=== PATIENT | female | born 1995 | race Caucasian/White ===

== ENCOUNTER 2017-10-21 14:41 | Emergency (ER) | payer OTHER ==
[2017-10-21 14:47] VITALS: BMI 19.3
--- NOTE | 2017-10-21 14:53 | PDOC ---
Rapid Medical Evaluation Chief Complaint: Sore Throat Time Seen by Provider: 10/21/17 14:47 Medical Evaluation: Allergies Allergy/AdvReac Type Severity Reaction Status Date / Time No Known Allergies Allergy Verified 10/21/17 14:45 Vital Signs Temp Pulse Resp BP Pulse Ox 98.7 F 60 18 132/71 100 10/21/17 14:45 10/21/17 14:45 10/21/17 14:45 10/21/17 14:45 10/21/17 14:45 10/21/17 14:47 I have performed a brief in-person evaluation of the patient. The patient presents with a chief complaints of mid chest pain with shortness of breath Reports pain is mid sternal that radiates in epigastric area with burning sensation. Pertinent physical exam findings: NAD even and unlabored breathing no pedal edema I have ordered the following: ekg, urine test ordered The patient will proceed to the ED for further evaluation.
[2017-10-21 15:27] LABS: BASO % 0.8 % (0-2.0); EOS % 1.3 % (0-4.5); HEMATOCRIT 38.6 % (32.4-45.2); LYMPH % 33.1 % (8-40); MCH 27.1 pg (25.7-33.7); MCHC 33.6 g/dl (32.0-36.0); MEAN CELL VOLUME 80.7 fl (80-96); MEAN PLT VOLUME 7.2 fl (7.5-11.1); MONO % 9.2 % (3.8-10.2); NEUT % 55.6 % (42.8-82.8); PLATELET COUNT 325 K/MM3 (134-434); RBC 4.79 M/mm3 (3.60-5.2); RDW 12.9 % (11.6-15.6); WHITE BLOOD COUNT 5.1 K/mm3 (4.0-10.0)
[2017-10-21 15:35] LABS: INR 1.15 (0.82-1.09)
[2017-10-21 15:44] LABS: ALBUMIN 3.9 g/dl (3.4-5.0); ANION GAP 5 (8-16); BILIRUBIN,TOTAL 0.5 mg/dL (0.2-1.0); BLOOD UREA NITROGEN 11 mg/dL (7-18); CALCIUM 8.7 mg/dL (8.5-10.1); CHLORIDE 107 mmol/L (98-107); CO2 28 mmol/L (21-32); CREATININE 0.8 mg/dL (0.55-1.02); GLUCOSE,RANDOM 84 mg/dL (74-106); POTASSIUM 3.8 mmol/L (3.5-5.1); SGOT/AST 37 U/L (15-37); SGPT/ALT 40 U/L (12-78); SODIUM 140 mmol/L (136-145); TOT PROT 7.7 g/dl (6.4-8.2)
[2017-10-21 15:47] LABS: ALK PHOS 61 U/L (45-117)
--- NOTE | 2017-10-21 15:48 | PDOC ---
History of Present Illness - General Chief Complaint: Chest Pain Stated Complaint: DIFFICULTY BREATHING Time Seen by Provider: 10/21/17 14:47 - History of Present Illness Initial Comments: 10/21/17 16:53 The patient is a 21 year old female with no significant PMH who presents for evaluation of chest pain. The patient reports burning midsternal chest pain with radiating into the back of her throat beginning 1 week ago with persistent symptoms prompting her presentation to the ED for evaluation. She denies any exacerbating or relieving factors and denies similar symptoms in the past. She reports some mild SOB, but otherwise denies fevers, chills, nausea, vomiting, abdominal pain, or changes with urination or bowel movements. She denies any OCP use, recent long travel, or leg swelling. Past History - Past Medical History Allergies/Adverse Reactions: Allergies Allergy/AdvReac Type Severity Reaction Status Date / Time No Known Allergies Allergy Verified 10/21/17 14:45 COPD: No - Immunization History Immunization Up to Date: Yes - Suicide/Smoking/Psychosocial Hx Smoking History: Never smoked Hx Alcohol Use: No Drug/Substance Use Hx: No Review of Systems - Review of Systems Comments:: 10/21/17 16:58 Constitutional: No fevers, chills, fatigue, malaise HEENT: No Rhinorrhea, nasal congestion, visual changes Cardiovascular: Chest pain. No syncope, palpitations, lightheadedness Respiratory: SOB. No Cough, Hemoptysis, Gastrointestinal: No Abdominal pain, Nausea, Vomiting, Constipation, Diarrhea, Melena Genitourinary: No Dysuria, Frequency, Urgency, Hesitancy, Hematuria, Flank pain Musculoskeletal: No Myalgia, arthralgia Skin: No rashes, itching, bruising, pallor Neurologic: No Headache, Dizziness, Numbness, Weakness, or Tingling Psychiatric: No Hallucinations. No SI or HI *Physical Exam - Vital Signs Last Vital Signs Temp Pulse Resp BP Pulse Ox 98.7 F 60 18 132/71 100 10/21/17 14:45 10/21/17 14:45 10/21/17 14:45 10/21/17 14:45 10/21/17 14:45 - Physical Exam Comments: 10/21/17 17:00 General Appearance: Nourished. No Apparent Distress HEENT: EOMI, NILESH. No Pharyngeal Erythema, Tonsillar Exudate, Tonsillar Erythema Neck: No Cervical Lymphadenopathy Respiratory/Chest: Lungs Clear, Normal Breath Sounds. No Crackles, Rales, Rhonchi, Wheezing Cardiovascular: Regular Rhythm, Regular Rate. No Murmur, Gallops, Rubs Gastrointestinal/Abdominal: Normal Bowel Sounds, Soft. No Guarding, Rebound, Tenderness Musculoskeletal: No CVA Tenderness Extremity: Normal Capillary Refill Integumentary: Normal Color, Dry, Warm Neurologic: Fully Oriented, Alert, Normal Mood/Affect, Normal Response, ED Treatment Course - LABORATORY CBC & Chemistry Diagram: 10/21/17 15:08 10/21/17 15:08 - ADDITIONAL ORDERS Additional order review: Laboratory Results 10/21/17 10/21/17 10/21/17 15:11 15:08 15:08 PT with INR 13.00 INR 1.15 H PTT (Actin FS) 31.0 Sodium 140 Potassium 3.8 Chloride 107 Carbon Dioxide 28 Anion Gap 5 L BUN 11 Creatinine 0.8 Creat Clearance w eGFR > 60 Random Glucose 84 Calcium 8.7 Total Bilirubin 0.5 AST 37 ALT 40 Alkaline Phosphatase 61 Troponin I < 0.02 Total Protein 7.7 Albumin 3.9 Urine HCG, Qual Negative 10/21/17 15:08 RBC 4.79 MCV 80.7 MCHC 33.6 RDW 12.9 MPV 7.2 L Neutrophils % 55.6 Lymphocytes % 33.1 Monocytes % 9.2 Eosinophils % 1.3 Basophils % 0.8 Medical Decision Making - Medical Decision Making 10/21/17 17:00 The patient is a 21 year old female with no significant PMH who presents for evaluation of chest pain. Differential includes but is not limited to: ACS, GERD, Pneumonia, infectious metabolic derangement. Given the patient's history , it is likely her symptoms are due to GERD. The patient does not have PE risk factors and we are less concerned for PE. Labs performed in triage including a cbc, cmp, troponin, urine preg were negative. We will obtain a chest plain film to evaluate further and treat the patient with iv fluids, pepcid, maalox, viscious lidocaine. We will continue to monitor and reassess in the meantime. 10/21/17 17:52 Chest plain film is unremarkable as preliminarily read by ER physician. The patient reports improvement in her symptoms. We are comfortable discharging the patient home at this time with primary care provider and GI follow up. We discussed the results, plan, and strict return precautions with the patient who voiced understanding and is agreeable with the plan. *DC/Admit/Observation/Transfer Diagnosis at time of Disposition: GERD (gastroesophageal reflux disease) Qualifiers: Esophagitis presence: esophagitis presence not specified Qualified Code(s): K21.9 - Gastro-esophageal reflux disease without esophagitis - Discharge Dispostion Disposition: HOME Condition at time of disposition: Good Admit: No - Referrals Referrals: Frank Juarez MD [Staff Physician] - - Patient Instructions Printed Discharge Instructions: DI for Gastroesophageal Reflux Disease (GERD) Additional Instructions: Please return to the ER if you experience concerning or worsening symptoms including worsening chest pain, difficulty breathing, vomiting, or fevers. Your lab results were normal here in the ER. Your symptoms are likely due to reflux. It is important that you call to schedule a follow up appointment with our GI specialist Dr. Juarez within 2-3 days to discuss your ER visit and further management of your symptoms. - Post Discharge Activity
[2017-10-21] MEDS ORDERED: FAMOTIDINE 20 MG/50 ML IVPB 20 MG/50 ML MG IVPB ONE ×2 (15:52→16:05)
[2017-10-21] MEDS ORDERED: SODIUM CHLORIDE 1,000 ML IV STA (15:52)
[2017-10-21] MEDS ORDERED: MAG HYDROX/AL HYDROX/SIMETH 30 ML UNIT-DOSE CUP PO ONE (15:53)
[2017-10-21] MEDS ORDERED: MAG HYDROX/AL HYDROX/SIMETH 30 ML UNIT-DOSE CUP ONE ×2 (16:05→16:50)
[2017-10-21] MEDS ORDERED: LIDOCAINE VISCOUS 2% ORAL/TOP 100 ML BOTTLE MM ONE (16:17)
[2017-10-21] MEDS ORDERED: LIDOCAINE VISCOUS 2% ORAL/TOP 20 ML UNIT-DOSE CUP ONE (16:50)
--- NOTE | 2017-10-21 16:52 | PDOC ---
Attending Attestation - Resident Resident Name: LidaJose - ED Attending Attestation I have performed the following: I have examined & evaluated the patient, The case was reviewed & discussed with the resident, I agree w/resident's findings & plan, Exceptions are as noted - HPI HPI: 10/21/17 16:49 21 yo F no pmhx here with c/o chest pain. burning in quality, started one week ago. no mod factors. starts in chest radiating to neck. no associated sob, not pleuritic. no leg swelling. no h/;'o dvt. no cough or congestion. no f/c n/v. - Physicial Exam PE: 10/21/17 16:51 awake alert lungs clear heart rrr no mrg. mild sterna ttp. abd soft nt nd. ext wwp no edema. no calf tenderness. skin warm and dry. nuero alert oriented . - Medical Decision Making 10/21/17 16:52 differential: gerd, msk pain, no risk factors for PE. , pna, plan cxr ekg labs. gi cocktail matt al home. ekg normal. abs negative. ucg negative. given antacid. pain improved.
[2017-10-21 18:23] VITALS: BP 126/71; PULSE 64; TEMP 98.2
--- NOTE | 2017-10-22 14:35 | EKG ---
Test Reason : Blood Pressure : / mmHG Vent. Rate : 065 BPM Atrial Rate : 065 BPM P-R Int : 166 ms QRS Dur : 088 ms QT Int : 410 ms P-R-T Axes : 047 055 036 degrees QTc Int : 426 ms NORMAL SINUS RHYTHM WITH SINUS ARRHYTHMIA POSSIBLE LEFT ATRIAL ENLARGEMENT BORDERLINE ECG NO PREVIOUS ECGS AVAILABLE Confirmed by MD Azael, Jose ([id number]) on 10/22/2017 2:35:22 PM Referred By: Confirmed By:Jose Addison MD
== END 2017-10-21 18:25 | disposition home or self-care (01) ==
LOC: JER 14:41
PROC: 3E033GC Introduction of Other Therapeutic Substance into Peripheral Vein, Percutaneous Approach (ICD-10-PCS; principal; 2017-10-21)
DX: K21.9 Gastro-esophageal reflux disease without esophagitis (principal)
CPT/HCPCS: 36415; 71046-TC-FY; 80053; 84484; 84703; 85025; 85610; 85730; 93005; 93010; 96365; 99283-25; J7030

== ENCOUNTER 2017-11-22 11:35 | Emergency (ER) | payer OTHER ==
[2017-11-22 12:13] VITALS: BP 125/46; PULSE 100; TEMP 98.2; BMI 20.9
[2017-11-22] MEDS ORDERED: guaiFENesin/D-METHORPHAN HB 10 ML UNIT-DOSE CUPS PO ONE (12:35)
[2017-11-22] MEDS ORDERED: PSEUDOEPHEDRINE HCL 30 MG TABLET PO ONE (12:35)
[2017-11-22] MEDS ORDERED: PSEUDOEPHEDRINE HCL 60 MG TABLET ONE (12:39)
[2017-11-22] MEDS ORDERED: guaiFENesin/D-METHORPHAN HB 10 ML UNIT-DOSE CUPS ONE (12:40)
--- NOTE | 2017-11-22 12:40 | PDOC ---
History of Present Illness - General Chief Complaint: Respiratory Stated Complaint: CHEST PAIN, HEADACHE Time Seen by Provider: 11/22/17 12:22 History Source: Patient Exam Limitations: No Limitations - History of Present Illness Initial Comments: 11/22/17 12:35 21 year old female with no medical or surgical history presents with persistent coughing, runny nose, chest discomfort since Tuesday. Reports irritation from coughing alot and nasal congestion. Taking cough syrup and claritin with no relief of symptoms. Denies dizziness, nausea or shortness of breath. 11/22/17 12:37 Timing/Duration: reports: week Severity: reports: mild Possible Cause: Yes: allergen exposure Modifying Factors: improves with: coughing Associated Symptoms: reports: cough, nasal congestion, nasal drainage Aspirin Received prior to arrival: No: no aspirin today ASA Contraindications(Core Measure): No: Allergy Beta Zaida Contraindications(Core Measure): Yes: Not Prescribed Beta Zaida Given by EMS(Core Measure): No Beta Zaida Taken at Home(Core Measure): No Beta Zaida Not Indicated at this Time(Core Measure): No Past History - Travel Traveled outside of the country in the last 30 days: No Close contact w/someone who was outside of country & ill: No - Past Medical History Allergies/Adverse Reactions: Allergies Allergy/AdvReac Type Severity Reaction Status Date / Time No Known Allergies Allergy Verified 11/22/17 12:10 Home Medications: Ambulatory Orders Fluticasone Propionate [Flonase Allergy Relief] 9.9 ml NS DAILY #1 spray.susp Guaifenesin Dm [Robitussin Dm -] 10 ml PO Q8H #21 cup 11/22/17 COPD: No - Immunization History Immunization Up to Date: Yes - Suicide/Smoking/Psychosocial Hx Smoking History: Never smoked Hx Alcohol Use: No Drug/Substance Use Hx: No Respiratory Specific PMHX - Complaint Specific PMHX Angina: No Bronchitis: No Pneumonia: No Pulmonary Embolus: No TB (Tuberculosis): No Review of Systems - Review of Systems Able to Perform ROS?: Yes Is the patient limited Guyanese proficient: No Constitutional: No: Chills, Fever, Loss of Appetite, Malaise, Weakness HEENTM: Yes: Nose Congestion Respiratory: Yes: Cough. No: Productive cough Cardiac (ROS): Yes: Chest Pain. No: Lightheadedness, Palpitations ABD/GI: No: Constipated, Difficulty Swallowing, Nausea, Poor Appetite, Poor Fluid Intake, Abdominal cramping : No: Burning, Discharge, Hematuria, Incontinence, Urgency Musculoskeletal: No: Back Pain, Joint Pain, Muscle Weakness, Neck Pain Neurological: No: Numbness, Tremors Psychiatric: No: Change in Appetite *Physical Exam - Vital Signs Last Vital Signs Temp Pulse Resp BP Pulse Ox 98.2 F 100 H 20 125/46 97 11/22/17 12:10 11/22/17 12:10 11/22/17 12:10 11/22/17 12:10 11/22/17 12:10 - Physical Exam General Appearance: Yes: Nourished, Appropriately Dressed HEENT: positive: EOMI, NILESH, Pharyngeal Erythema, Other (no swelling of tonsils ) Neck: positive: Supple. negative: Lymphadenopathy (R), Lymphadenopathy (L) Respiratory/Chest: positive: Lungs Clear, Normal Breath Sounds. negative: Respiratory Distress, Accessory Muscle Use Cardiovascular: positive: Regular Rhythm, Regular Rate, S1, S2 Extremity: positive: Normal Capillary Refill Neurologic: positive: cottage parent II-XII NML intact, Fully Oriented, Motor Strength 5/5 Medical Decision Making - Medical Decision Making 11/22/17 12:41 21 year old female with no medical or sugical history presents with rhinorrhea and non productive coughing from allergic rhinnitis sudafed and robitussin ordered ekg done in triage and signed and reviewed by attending 11/22/17 13:15 coughing and runny nose better with sudafed and robitussin Rx: flonase and robitussin *DC/Admit/Observation/Transfer Diagnosis at time of Disposition: Allergic rhinitis Qualifiers: Allergic rhinitis trigger: unspecified Allergic rhinitis seasonality: seasonal Qualified Code(s): J30.2 - Other seasonal allergic rhinitis - Discharge Dispostion Disposition: HOME Condition at time of disposition: Good - Prescriptions Prescriptions: Fluticasone Propionate [Flonase Allergy Relief] 9.9 ml NS DAILY #1 spray.susp Guaifenesin Dm [Robitussin Dm -] 10 ml PO Q8H #21 cup - Referrals - Patient Instructions Printed Discharge Instructions: Allergic Rhinitis Additional Instructions: Take allergy medication before leaving the house daily Call primary physician for follow up appointment - Post Discharge Activity Forms/Work/School Notes: Back to Work
== END 2017-11-22 13:21 | disposition home or self-care (01) ==
LOC: JERFT 11:35
DX: J30.2 Other seasonal allergic rhinitis (principal)
CPT/HCPCS: 99281-25

== ENCOUNTER 2019-02-01 15:58 | Emergency (ER) | payer OTHER | END 2019-02-01 18:55 | disposition home or self-care (01) | LOC: JERFT 15:58 ==

== ENCOUNTER 2020-01-05 08:34 | Emergency (ER) | payer OTHER ==
[2020-01-05 08:43] VITALS: TEMP 98; BMI 23.1
--- NOTE | 2020-01-05 08:48 | PDOC ---
History of Present Illness - General Chief Complaint: Urinary Problem Stated Complaint: ABD PAIN Time Seen by Provider: 01/05/20 08:45 - History of Present Illness Initial Comments: HPI: 24yo F with no reported PMH presenting with dysuria, frequency, and urgency x 5 months. Patient has been evaluated by her primary care physician and urology regarding these symptoms. At first reported that she has not been treated with antibiotics for this, but later said she has had many courses of antibiotics but cannot say what they were called. Denies recent unprotected sexual encounters; no vaginal discharge or bleeding. LMP was 12/13/2019. Patient reports having had an ultrasound of her bladder which was 'normal.' She has an appointment for a cystoscopy in two weeks but the pain was so bad that she came to the ED today. Has taken ibuprofen today with no symptom relief. No fevers, chills, chest pain, or shortness of breath. PCP: patient does not know the name Urologist: patient does not know the name ROS: Constitutional: no fever, no chills HEENT: no throat pain, no dysphagia Cardiovascular: no chest pain, no palpitations Respiratory: no cough, no shortness of breath Gastrointestinal: no abdominal pain, no nausea Genitourinary: +dysuria, no hematuria Musculoskeletal: no myalgia, no arthralgia Skin: no rash, no itching Neurologic: no headache, no weakness Psych: no agitation, no anxiety PE: General: Awake, alert, and fully oriented, in no acute distress Head: No signs of trauma Eyes: EOMI, sclera anicteric ENT: Moist mucus membranes Neck: Normal ROM, supple Lungs: Lungs clear, Normal breath sounds Cardio: Regular rhythm, S1 and S2 present Abdomen: Soft, nontender. No guarding, no rebound, no masses Extremities: Normal range of motion, Distal pulses present Skin: Warm, Dry, normal turgor Neurologic: Cranial nerves II through XII grossly intact. Normal speech Pelvic: External genitalia without erythema, exudate or discharge. Vaginal vault is without discharge. Cervix is reddened. There is no bleeding noted. Uterus is noted to be of appropriate size and nontender. No cervical motion tenderness is seen. No masses are palpated. The adnexa are without masses or tenderness. Trim Attacher, Floridalma Reis, present during entire pelvic exam ED Course/MDM: DDX including but not limited to UTI, pyelonephritis, cervicitis, STI, urethritis, OAB Labs Pelvic exam 01/05/20 08:47 Per patient's pharmacy, patient has recently been prescribed: diflucan, fluconazole, myrbetriq, oxybutynin 01/05/20 10:06 Laboratory Tests 01/05/20 09:20 Urine Color Yellow Urine Appearance Clear Urine pH 5.5 Ur Specific [place] 1.029 Urine Protein Negative Urine Glucose (UA) Negative Urine Ketones Negative Urine Blood Negative Urine Nitrite Negative Urine Bilirubin Negative Urine Urobilinogen 0.2 Ur Leukocyte Esterase Negative Urine HCG, Qual Negative UA negative for infection We will cover with Rocephin and Azithromycin for cervicitis/urethritis Patient to follow up with urologist at her already scheduled appointment Return precautions Stable for discharge Past History - Medical History Allergies/Adverse Reactions: Allergies Allergy/AdvReac Type Severity Reaction Status Date / Time No Known Allergies Allergy Verified 01/05/20 08:38 Home Medications: Ambulatory Orders Acetaminophen 1,000 mg PO Q6H PRN #30 tablet 09/13/19 Albuterol Sulfate Inhaler - [Ventolin HFA Inhaler -] 1 - 2 inh PO Q4H #1 inhaler 09/13/19 Phenazopyridine HCl [Pyridium -] 200 mg PO BID #6 tablet 01/05/20 COPD: No - Immunization History Immunization Up to Date: Yes - Psycho-Social/Smoking History Smoking History: Never smoked Have you smoked in the past 12 months: No - Substance Abuse Hx (Audit-C & DAST Scrn) How often the patient has a drink containing alcohol: Monthly or less Score: In Men: 4 or > Positive; In Women: 3 or > Positive: 1 Screen Result (Pos requires Nsg. Audit-10AR): Negative In the last yr the pt used illegal drug/Rx for NonMed reason: No Score: Yes response is considered Positive: 0 Screen Result (Positive result requires Nsg. DAST-10): Negative *Physical Exam - Vital Signs Last Vital Signs Temp Pulse Resp BP Pulse Ox 98 F 65 16 106/73 98 01/05/20 08:39 01/05/20 08:39 01/05/20 08:39 01/05/20 08:39 01/05/20 08:39 Discharge - Discharge Information Problems reviewed: Yes Clinical Impression/Diagnosis: Cervicitis Condition: Stable Disposition: HOME - Additional Discharge Information Prescriptions: Phenazopyridine HCl [Pyridium -] 200 mg PO BID #6 tablet - Follow up/Referral - Patient Discharge Instructions Patient Printed Discharge Instructions: DI for Acute Cervicitis Additional Instructions: You came into the emergency department for pain when you urinate. We treated you with antibiotics while you were here. Prescription has been sent to your pharmacy. Take as instructed. Follow up with your primary care physician in one week to discuss this ED visit and for further evaluation of your symptoms. Your care is not complete until you do so. Call and make an appointment. Immediate medical attention is required if you experience: you develop high fevers, chills, persistent vomiting, stop urinating, or any new or concerning symptoms. If you think you have an emergency, call for medical help right away - Post Discharge Activity
--- NOTE | 2020-01-05 09:04 | PDOC ---
Attending Attestation - Resident Resident Name: Gypsy Mccartney - ED Attending Attestation I have performed the following: I have examined & evaluated the patient, The case was reviewed & discussed with the resident, I agree w/resident's findings & plan, Exceptions are as noted - HPI HPI: 01/05/20 09:01 This is a 24YOF with h/o p/w 3 weeks of suprapubic pain with urgency, frequency, and burning on urination. She saw her PCP who did UA and did not find an infection, then sent her to a urologist who re-checked the UA and also found it to be negative. states she cannot wait for this appointment because it has become too painful, despite trying NSAIDs which did not work. She has not tried taking pyridium. She denies f/c/n/v/d/c, significant back pain, vaginal bleeding or discharge, possibility of being , or other symptoms. - Physicial Exam PE: 01/05/20 09:03 GENERAL: nontoxic-appearing, appears a bit frustrated, A/Ox4, no distress, answers questions appropriately HEENT: PERRLA, EOMI, moist mucous membranes NECK/BACK: no midline ttp, no spinal stepoff or deformity, no hematoma, full ROM, neck supple CARDIOVASCULAR: regular rate/rhythm, no MGR, strong peripheral pulses, capillary refill <2 seconds, extremities wwp, no edema LUNGS/RESPIRATORY: no respiratory distress, CTAB GI/ABDOMEN: symmetric [id number], normoactive BS, soft, no ttp, no midline pulsatile masses : no CVA tenderness, pelvic exam per resident note with noted erythematous appearance to cervix but no CMT, no specific adnexal ttp MSK/EXTREMITIES: no muscle atrophy, no acute deformity SKIN: warm and dry, no pallor, no jaundice, no rash, no pathologic-appearing bruising, no skin breakdown, no cuts, no lesions NEUROLOGICAL: GCS 15, CN II-XII grossly intact, 5/5 strength proximally and distally, no facial droop - Medical Decision Making Adult female Pt p/w painful urination, suprapubic pain. Initial Vital Signs Temp Pulse Resp BP Pulse Ox 98 F 65 16 106/73 98 01/05/20 08:39 01/05/20 08:39 01/05/20 08:39 01/05/20 08:39 01/05/20 08:39 DDX IBNLT: UTI, interstitial cystitis, cervicitis, PID, TOA, other STD/STI, vaginal lesion, vulvuvaginal candidiasis, neurogenic bladder, renal colic, obstructive uropathy, ectopic , ovarian torsion, ovarian cyst, endometritis, malignancy, hernia, appendicitis, proctitis, sigmoid div erticulitis wwo abscess or perforation, endometriosis, primary dysmenorrhea, etc. W/U ordered: UA UCx GC Chlamydia TX ordered: Azithromycin + ceftriaxone for clinical cervicitis on pelvic exam Laboratory Tests 01/05/20 09:20 Urine Color Yellow Urine Appearance Clear Urine pH 5.5 Ur Specific [place] 1.029 Urine Protein Negative Urine Glucose (UA) Negative Urine Ketones Negative Urine Blood Negative Urine Nitrite Negative Urine Bilirubin Negative Urine Urobilinogen 0.2 Ur Leukocyte Esterase Negative Urine HCG, Qual Negative Last Vital Signs Temp Pulse Resp BP Pulse Ox 98 F 98 H 58 H 110/74 14 L 01/05/20 11:10 01/05/20 11:10 01/05/20 11:10 01/05/20 11:10 01/05/20 11:10 Decision is made to treat the patient for cervicitis given the cervical erythema and stated discomfort. The Pt is appropriate for discharge with close outpatient follow up. Workup is not concerning for emergency-level pathology at this time. The Pt is comfortable with this plan and will follow up with her primary care provider in 1-3 days, as well as urology and IT HELP DESK ASSOCIATE provider. She will take OTC pain medications, pyridium, etc. for pain. Specific return precautions are discussed and she will come back to the ER if necessary. Discharge - Discharge Information Problems reviewed: Yes Clinical Impression/Diagnosis: Cervicitis Condition: Stable Disposition: HOME - Admission No - Additional Discharge Information Prescriptions: Phenazopyridine HCl [Pyridium -] 200 mg PO BID #6 tablet - Follow up/Referral - Patient Discharge Instructions Patient Printed Discharge Instructions: DI for Acute Cervicitis Additional Instructions: You came into the emergency department for pain when you urinate. We treated you with antibiotics while you were here. Prescription has been sent to your pharmacy. Take as instructed. Follow up with your primary care physician in one week to discuss this ED visit and for further evaluation of your symptoms. Your care is not complete until you do so. Call and make an appointment. Immediate medical attention is required if you experience: you develop high fevers, chills, persistent vomiting, stop urinating, or any new or concerning symptoms. If you think you have an emergency, call for medical help right away - Post Discharge Activity
[2020-01-05 10:11] LABS: PH,URINE 5.5 (5.0-8.0); URINE APPEARANCE CLEAR; URINE BILIRUBIN NEGATIVE (NEGATIVE); URINE COLOR YELLOW; URINE GLUCOSE (UA) NEGATIVE (NEGATIVE); URINE KETONE NEGATIVE (NEGATIVE); URINE LEUK ESTERASE NEGATIVE (NEGATIVE); URINE NITRITE NEGATIVE (NEGATIVE); URINE PROTEIN NEGATIVE (NEGATIVE); URINE UROBILINOGEN 0.2 mg/dL (0.2-1.0)
[2020-01-05 10:14] LABS: HCG,QUALITATIVE URINE Negative
[2020-01-05] MEDS ORDERED: AZITHROMYCIN 250 MG TABLET PO ONE (10:24)
[2020-01-05] MEDS ORDERED: PHENAZOPYRIDINE HCL 100 MG TABLET (FP) PO ONE (10:25)
[2020-01-05] MEDS ORDERED: PHENAZOPYRIDINE HCL 100 MG TABLET (FP) ONE (10:37)
[2020-01-05] MEDS ORDERED: AZITHROMYCIN 500 MG TABLET ONE (10:38)
[2020-01-05] MEDS ORDERED: LIDOCAINE HCL 1%, 10 MG/ML (50 mL VIAL) INF ONE (10:43)
[2020-01-05] MEDS ORDERED: LIDOCAINE HCL 1%, 10 MG/ML (20ML VIAL) ONE (10:45)
[2020-01-05 11:11] VITALS: BP 110/74; PULSE 98
== END 2020-01-05 11:11 | disposition home or self-care (01) ==
LOC: JER 08:34
DX: N72 Inflammatory disease of cervix uteri (principal)
CPT/HCPCS: 36415; 81003; 84703; 87086; 87491; 87591; 99285-25

== ENCOUNTER 2023-02-05 08:04 | Emergency (ER) | payer OTHER ==
[2023-02-05 08:09] VITALS: BP 113/74; PULSE 69; RESP 20; TEMP 98.1; BMI 25.0
[2023-02-05 09:15] LABS: PH,URINE 8.5 (5.0-8.0); URINE APPEARANCE TURBID; URINE BILIRUBIN NEGATIVE (NEGATIVE); URINE COLOR YELLOW; URINE GLUCOSE (UA) NEGATIVE (NEGATIVE); URINE KETONE NEGATIVE (NEGATIVE); URINE LEUK ESTERASE NEGATIVE (NEGATIVE); URINE NITRITE NEGATIVE (NEGATIVE); URINE PROTEIN NEGATIVE (NEGATIVE); URINE UROBILINOGEN 0.2 mg/dL (0.2-1.0)
== END 2023-02-05 10:38 | disposition home or self-care (01) ==
LOC: JER 08:04
DX: R10.30 Lower abdominal pain, unspecified (principal); R30.0 Dysuria; R35.0 Frequency of micturition; R39.15 Urgency of urination
CPT/HCPCS: 81003; 84703; 87086